=== PATIENT | female | born 2005 | race Caucasian/White ===

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

== ENCOUNTER 2025-01-24 00:39 | Emergency (ER) | payer MEDICAID ==
[~2025-01-24] VITALS: Ht 167.6 cm; Wt 97.7 kg
[~2025-01-24 00:39] MED LIST: IBUP-1456 PO
[2025-01-24] MEDS ORDERED: CEPH250C PO (01:27)
[2025-01-24] MEDS ORDERED: DIPH25CA66 PO (01:27)
--- NOTE | 2025-01-24 01:28 | ED.PDOC ---
History of Present Illness HPI Comments This patient is a morbidly obese 19-year-old female with a history of anxiety and depression who arrives to the ED today for evaluation of possible allergic reaction. Patient states she has been taking Macrobid for three days for a urinary tract infection. Subsequent to taking tonight that dose, patient states her body started to burn and she felt a little out of it. Patient denies any fever nausea or vomiting. Patient states that since arrival , her symptoms have reduced. Vital signs were stable. 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 Family History Family History: Family hx of DM Social History Smoker: Cigarettes Alcohol: Occasionally Drugs: Denies Drug Use Lives In: Home Constitutional: reports: fatigue, others (Patient states she feels like she is burning inside.); denies: chills, diaphoresis, fever, malaise, sweats, weakness EENTM: denies: blurred vision, double vision, ear bleeding, ear discharge, ear drainage, ear pain, ear ringing, eye pain, eye redness, hearing loss, mouth pain, mouth swelling, nasal discharge, nose bleeding, nose congestion, nose pain, photophobia, tearing, throat pain, throat swelling, voice changes, others Respiratory: denies: cough, hemoptysis, orthopnea, SOB at rest, shortness of breath, SOB with excertion, stridor, wheezing, others Cardiovascular: denies: chest pain, dizzy spells, diaphoresis, Dyspnea on exertion, edema, irregular heart beat, left arm pain, lightheadedness, palpitati ons, PND, syncope, others Gastrointestinal: denies: abdomen distended, abdominal pain, blood streaked bowels, constipated, diarrhea, dysphagia, difficulty swallowing, hematemesis, melena, nausea, poor appetite, poor fluid intake, rectal bleeding, rectal pain, vomiting, others Genitourinary: denies: abnormal vagina bleeding, burning, dyspareunia, dysuria, flank pain, frequency, hematuria, incontinence, pain, , vagina discharge, urgency, others Neurological: denies: dizziness, fainting, headache, left sided numbness, left sided weakness, numbness, paresthesia, pre-existing deficit, right sided numbness, right sided weakness, seizure, speech problems, tingling, tremors, weakness, others Musculoskeletal: denies: back pain, gout, joint pain, joint swelling, muscle pain, muscle stiffness, neck pain, others Integumetry: denies: bruises, change in color, change in hair/nails, dryness, laceration, lesions, lumps, rash, wounds, others Allergic/Immunocompromised: denies: Difficulty Healing, Frequent Infections, Hives, Itching, others Hematologic/Lymphatic: denies: anemia, blood clots, easy bleeding, easy bruisin g, swollen glands, others Endocrine: denies: excessive hunger, excessive sweating, excessive thirst, excessive urination, flushing, intolerance to cold, intolerance to heat, unexplained weight gain, unexplained weight loss, others Psychiatric: denies: anxiety, bipolar disorder, depression, hopeless, panic disorder, schizophrenia, sleepless, suicidal, others Physical Exam Exam Comments Patient appeared unremarkable at time of evaluation. No signs of rash, respiratory concerns or systemic issues. General Appearance: Mild Distress (Mild distress due to continued internal burning concerns.), Normal HEENT: Normal ENT Inspection, Pharynx Normal, TMs Normal Neck: Full Range of Motion, Non-Tender, Normal, Normal Inspection Respiratory: Chest Non-Tender, Lungs Clear, No Accessory Muscle Use, No Respiratory Distress, Normal Breath Sounds Cardiovascular: No Edema, No JVD, No Murmur, No Gallop, Normal Peripheral Pulses, Regular Rate/Rhythm Breast Exam: Deferred Gastrointestinal: No Organomegaly, Non Tender, No Pulsatile Mass, Normal Bowel Sounds, Soft Genitalia: Deferred Pelvic: Deferred Rectal: Deferred Extremities: No calf tenderness, Normal capillary refill, Normal inspection, Normal range of motion, Non-tender, No pedal edema Neurologic: Alert, No Motor Deficits, Normal Affect, Normal Mood, No Sensory Deficits Cerebellar Function: Normal Reflexes: Normal Skin: Dry, Normal Color, Warm Lymphatic: No Adenopathy Was a procedure done? Was a procedure done?: No Differential Dx Considerations may include: Allergic reaction, anxiety X-Ray, Labs, Meds, VS Vital Signs Date Time Temp Pulse Resp B/P (MAP) Pulse Ox O2 Delivery O2 Flow Rate FiO2 01/24/25 00:41 97.5 95 16 125/84 97 97.5 X-Ray, Labs, Meds, VS Comment Spent time discussing the patient's concerns with her. Advised that she may have had some type of reaction to the Macrobid. Advised stopping the Macrobid and I will give her a different prescription to complete for her antibiotics. Advise utilizing Benadryl as needed. Time of 1ST Reevaluation: Reevaluation 1ST: Improved Consultation: PCP Patient Education/Counseling: Diagnosis, Treatment Family Education/Counseling: Diagnosis, Treatment SEPSIS Sepsis Screen Date sepsis recognized/suspect: Jan 24, 2025 Time Sepsis recognized/suspect: 004 Recent Procedure: No On Antibiotic Therapy: No Respiratory Rate >20: No Heart Rate >90: Yes Temp<36 C (96.8 F) or >38.3 C: No SBP <90 or MAP <65 mmHG: No New Acute Mental Status Change: No Is the patient on CPAP, BIPAP,: No Physician Orders Dexamethasone Injection (Decadron Inject (01/24/25 01:30) Ketorolac Injection (Toradol Injection) (01/24/25 01:30) Vital Signs Date Time Temp Pulse Resp B/P (MAP) Pulse Ox O2 Delivery O2 Flow Rate FiO2 01/24/25 00:41 97.5 95 16 125/84 97 97.5 Departure 1 Departure Time of Disposition: Impression: Primary Impression: Allergic reaction to drug Disposition: HOME / SELF CARE / HOMELESS Condition: Stable Additional Instructions: Advise utilizing antibiotics as directed until completion. Advised Benadryl as needed. Patient should follow up with the primary care provider for discussions related to today's events. e-Prescriptions Diphenhydramine Hcl (Benadryl Allergy) 25 Mg Cap 1 CAP PO Q8HP PRN, #20 CAP 0 Refills Prov: DEE PERSAUD PAC 01/24/25 Cephalexin (KEFLEX CAPSULE) 250 Mg Cp 1 CAP PO QID for 3 Days, #12 CAP Prov: DEE PERSAUD PAC 01/24/25 Discharged With: Self, Friend Critical Care Note Critical Care Time?: No Stability Stability form required: No Heart Score Heart Score: Heart Score Response (Comments) Value History N/A 0 EKG N/A 0 Age N/A 0 Risk Factors N/A 0 Troponin N/A 0 Total 0 DEE PERSAUD PAC Jan 24, 2025 01:28
[2025-01-24 02:28] VITALS: BP 136/78; TEMP 97.9
[2025-01-24 02:29] VITALS: PULSE 86; RESP 16; O2SAT 99
[2025-01-24] MEDS: KETOROLAC TROMETH 60MG/2ML VIAL IM ONE (02:35)
== END 2025-01-24 02:50 | disposition home or self-care (01) ==
LOC: ER 00:39
DX: M79.18 Myalgia, other site (principal); T37.8X5A Adverse effect of other specified systemic anti-infectives and antiparasitics, initial encounter; F17.210 Nicotine dependence, cigarettes, uncomplicated; F10.90 Alcohol use, unspecified, uncomplicated; F41.9 Anxiety disorder, unspecified; F32.A Depression, unspecified; Z79.899 Other long term (current) drug therapy; Y90.9 Presence of alcohol in blood, level not specified; Y92.89 Other specified places as the place of occurrence of the external cause
CPT/HCPCS: 96372; 99284; J1100; J1885